=== PATIENT | female | born 1970 | race Caucasian/White ===

== ENCOUNTER 2025-04-25 12:11 | Emergency (ER) | payer MEDICAID ==
[~2025-04-25] VITALS: Ht 160 cm; Wt 73.0 kg
[2025-04-25 12:23] VITALS: O2SAT 98
[2025-04-25 12:49] VITALS: BP 137/74; PULSE 95; RESP 18; TEMP 36.9; O2SAT 98
[2025-04-25 12:51] LABS: BASOPHILS % 0.4 % (0.0-2.0); EOSINOPHILS % 0.3 % (0.0-5.0); HEMATOCRIT. 39.3 % (36.0-48.0); HEMOGLOBIN. 13.2 g/dL (12.0-16.0); LYMPHOCYTES % 14.0 % (20.0-50.0); MEAN PLATELET VOLUME 8.7 fl (7.4-10.4); MONOCYTES % 5.2 % (2.0-8.0); NEUTROPHILS % 80.1 % (40.0-76.0); PLATELET 275 x1000/uL (130-400); RED BLOOD CELL COUNT 4.63 mill/uL (4.2-5.4); RED CELL DISTRIBUTION WIDTH 14.4 % (11.6-14.6)
[2025-04-25 13:05] LABS: CREATININE 0.8 mg/dL (0.6-1.0)
[2025-04-25 13:06] LABS: UREA NITROGEN BLOOD 9 mg/dL (9-23)
[2025-04-25 13:39] LABS: PROTEIN TOTAL 7.1 g/dL (6.0-8.3)
[2025-04-25 13:41] LABS: ASPARTATE AMINOTRANSFERASE 25 IU/L (<34); BILIRUBIN DIRECT 0.1 mg/dL (<=3.0); BILIRUBIN TOTAL 0.6 mg/dL (0.1-1.0)
[2025-04-25] MEDS: IBUPROFEN 600MG TABLET PO ONE (13:46)
[2025-04-25 13:47] LABS: HCG SCREEN NEGATIVE
[2025-04-25 14:46] LABS: CLARITY URINE CLOUDY (CLEAR); COLOR URINE DARK YELLOW (YELLOW); GLUCOSE URINE NEGATIVE (NEGATIVE); KETONES URINE NEGATIVE (NEGATIVE); LEUKOCYTE ESTERASE URINE 3+ (NEGATIVE); NITRITE URINE POSITIVE (NEGATIVE); OCCULT BLOOD URINE 2+ (NEGATIVE); PH URINE 7.5 (4.5-8.0); PROTEIN URINE 2+ (NEGATIVE); SPECIFIC GRAVITY URINE 1.015 (1.005-1.030); UROBILINOGEN URINE 1.0 E.U./dL (0.2-1.0)
[2025-04-25 15:06] LABS: BACTERIA URINE 4+; RBC URINE 50-100 /hpf (0-2); SQUAMOUS EPITHELIAL CELL URINE 1+ /lpf (RARE/1+); WBC URINE TNTC /hpf (0-2)
[2025-04-25] MEDS ORDERED: CEFP200T13 MT (15:10)
[2025-04-25] MEDS ORDERED: ONDA-239 PO (15:10)
== END 2025-04-25 15:47 | disposition home or self-care (01) ==
LOC: ER 12:11
DX: N39.0 Urinary tract infection, site not specified (principal); R10.30 Lower abdominal pain, unspecified
CPT/HCPCS: 36415; 74176; 80048; 80076; 81003; 84703; 85025; 87077; 87186; 99284